=== PATIENT | male | born 2000 | race Hispanic/Latino ===

== ENCOUNTER 2021-04-03 08:11 | Day surgery (SDC) | payer BC ==
[2021-03-31 13:33] LABS: Absolute Lymphocytes (CBC) 2.6 K/uL (0.7-4.9); Basophils % 0.6 % (0-1.3); Hematocrit 46.9 % (39.6-49.0); MPV 8.7 fL (7.6-11.3); RBC Red Blood Cell Count 5.11 M/uL (4.33-5.43)
[2021-03-31 13:46] LABS: BUN Blood Urea Nitrogen 16 mg/dL (7-18); Bicarbonate 33 mmol/L (21-32); Glucose Level 102 mg/dL (74-106); Potassium 4.5 mmol/L (3.5-5.1); Sodium Level 142 mmol/L (136-145)
[2021-04-03] MEDS ORDERED: CEFAZOLIN/NS 1gm 1 GM/50 ML BAG ONE (09:14)
[2021-04-03] MEDS ORDERED: BUPIVACAINE 0.25% PF 10 ML VIAL ONE (09:15)
[2021-04-03] MEDS ORDERED: GLYCOPYRROLATE 0.2 MG/ML SYR ONE (09:15)
[2021-04-03] MEDS ORDERED: LIDOCAINE 2% MPF 5 ML VIAL ONE (09:15)
[2021-04-03] MEDS ORDERED: MIDAZOLAM HCL 2 MG/2 ML INJ ONE (09:15)
[2021-04-03] MEDS ORDERED: propofoL 200 MG/20 ML VIAL IV ONE (09:15)
[2021-04-03] MEDS ORDERED: FENTANYL CITR 100 MCG/2 ML ONE (09:15)
[2021-04-03] MEDS ORDERED: ACETAMINOPHEN 500 MG TAB ONE (09:18)
[2021-04-03] MEDS ORDERED: CELECOXIB 100 MG CAPSULE ONE (09:18)
[2021-04-03] MEDS ORDERED: BUPIVACAINE 0.5% PF 10 ML VIAL ONE (09:18)
[2021-04-03] MEDS: Ringers Lactate 1,000 ML IV ONE ×2 (09:20→09:35)
[2021-04-03] MEDS ORDERED: ONDANSETRON 4 MG/2 ML VIAL ONE (09:52)
[2021-04-03] MEDS ORDERED: KETOROLAC 30 MG/ML INJ ONE (09:52)
[2021-04-03] MEDS ORDERED: dexAMETHasone 10 MG/ML VIAL ONE (09:56)
--- NOTE | 2021-04-03 10:04 | P.BOP ---
Preoperative diagnosis: multiple tender scrotal subQ mass(5) together 1x1 cm each Postoperative diagnosis: same Primary procedure: Excisional biopsy multiple tender scrotal subQ mass 5x2 cm total Estimated blood loss: <10cc Specimen: masses Findings: masses in 5x2 cm area Anesthesia: General Complications: None Transferred to: Recovery Room Condition: Good
[2021-04-03 10:40] VITALS: O2SAT 99
[2021-04-03 11:21] VITALS: BP 123/72; TEMP 96.7
--- NOTE | 2021-04-03 13:06 | OP ---
Date of Procedure: 04/03/2021 Surgeon: Srini Monroy MD Preoperative Diagnosis: Multiple tender scrotal enlarging subcutaneous masses on the anterior scrotu m. It is about 5 of them, each one 1 x 1 cm and was removed in its entirety section. This is about 5 x 2 cm. Postoperative Diagnosis: Multiple tender scrotal enlarging subcutaneous masses on the anterior scrot um. It is about 5 of them, each one 1 x 1 cm and was removed in its entirety section. This is about 5 x 2 cm. Procedure: Excisional biopsy of multiple tender scrotal subcutaneous masses and total area of about 5 x 2 cm when we put all them together. Estimated Blood Loss: Less than 10 cc. Specimen: Masses. Finding: Masses, about 5 x 2 cm area. Anesthesia: General. Complications: None. Indication: This is the case of a male, who comes to us with enlarging masses on the anterior scrota l area, sometimes some ulceration on it, and sometimes some drainage. He wants them excised. Benefi ts, alternatives, and risks of excision fully explained, which include, but not limited to infection, bleeding, damage to adjacent structures, anesthesia complication, recurrence, MS, and even . H e also understands this may not relieve any symptoms. He might need more than one surgical intervent ion. He understands he may be losing some skin in that area. We are going to try to group this toge ther, trying to make at least amount of incisions in the scrotum. He signed a consent. The area of concern was marked by me and the patient in the holding room. Procedure In Detail: The patient was brought to the operating room, placed in supine position. Anes thesia was done without complication. Scrotal area was prepped and draped in usual sterile fashion. So, we were trying to group this and we ended up removing the areas about 5 x 2 cm with 3 incisions adjacent. The entire area was marked. The entire mass was removed and then we proceeded to close th is in 3 different areas. The area once again is about 5 x 2 cm. We put all the mass together in mickie t region and after obtaining hemostasis and removing each one of them, we proceeded then to close the area with subcutaneous 3-0 chromic and then interrupted 3-0 nylon. The patient tolerated the proced ure well. Area was covered with sterile dressings. The patient was sent to recovery in stable condi tion. ECHO/TJ Voice ID: [id number] Report ID: [id number]
--- NOTE | 2021-04-03 13:06 | DS ---
Date of Discharge: 04/03/2021 Diagnosis: Multiple tender scrotal subcutaneous masses. Procedure: Excisional biopsy of multiple tender scrotal subcutaneous masses. Disposition: Home. Activity: As tolerated. No heavy lifting. Plan: Follow up in my office in 1 week. Call for appointment at [phone]. Keep area dry for 24 bessie rs, then may remove outer dressings, clean the area with antibacterial soap and water, then use Bactr oban cream over the area and cover with sterile gauze. The patient tolerated the procedure well. Lo cristian anesthesia was applied before closure and irrigation was done too, and specimen sent to the patho logist. ECHO/TJ Voice ID: [id number] Report ID: [id number]
== END 2021-04-03 11:16 | disposition home or self-care (01) ==
LOC: OR 08:11
PROVIDERS: ATTEND Surgery
PROC: 0JBB0ZZ Excision of Perineum Subcutaneous Tissue and Fascia, Open Approach (ICD-10-PCS; 2021-04-03)
PROC: 0JBB0ZZ Excision of Perineum Subcutaneous Tissue and Fascia, Open Approach (ICD-10-PCS; 2021-04-03)
PROC: 0VB50ZZ Excision of Scrotum, Open Approach (ICD-10-PCS; principal; 2021-04-03 09:45)
DX: L72.0 Epidermal cyst (principal); Z20.822 Contact with and (suspected) exposure to COVID-19
CPT/HCPCS: 85025; 80048; 36415; 88304; 11421; 11423; 11422; U0003; J2704; J2250; J3010; J1100; J0690; J7120; J2405